=== PATIENT | male | born 1985 | race Caucasian/White ===

== ENCOUNTER 2024-06-10 07:14 | Emergency (ER) | payer OTHER, SELFPAY ==
[2024-06-10 07:19] VITALS: BP 131/79; PULSE 73; RESP 18; TEMP 36.8; O2SAT 93
--- NOTE | 2024-06-10 07:23 | W.ED.UPPEXIN ---
HPI - Extremity Injury (Upper) General: Chief Complaint: Wound/Laceration Stated Complaint: cut finger Time Seen by Provider: 06/10/24 07:15 History of Present Illness: 38-year-old male received a cut to the left index finger laterally closing a pocket knife. He is able to move the finger without difficulty. No other injury. Unsure of his last tetanus shot. Related Data Home Medications ?Medication ?Instructions ?Recorded ?Confirmed No Known Home Medications 06/10/24 06/10/24 Allergies Allergy/AdvReac Type Severity Reaction Status Date / Time No Known Allergies Allergy Unverified 11/21/22 10:55 Review of Systems Musc: Reports: other (Laceration left index finger) PFSH ED PFSH: Social History Smoking and tobacco/nicotine status: current every day tobacco/nicotine user cigarettes Alcohol intake: never Substance/Drug Use: never Adopted: No Caregiver/support person: No Lives independently: Yes Household members: none Housing: Manufactured/Mobile home Marital status: Single Number of children: 2 Highest education level completed: High School Graduate service: No Current occupational status: employed Physical Exam Extremity: OTHER: Full-thickness laceration medial aspect left index finger along the PIP. Full-thickness laceration 4 cm in length. No injury to tendon patient will flex and extend without difficulty Procedures Laceration Laceration 1: Site: hand Side (If applicable): left Size (cm): 4 Description: linear Pre-repair: wound explored and irrigated extensively Skin layer closed with: nylon Size (cm): 4-0 Number of sutures: 1 Technique: running Nerve Block Nerve Block 1: Time out performed: Yes Local Anesthetic: lidocaine 1% Amount of anesthesia used (mL): 5 Side: left Nerve Blocks: digital (Left index finger) Procedure Successful: Yes Patient Tolerated Procedure: well Complications: none Course Vital Signs: Vital signs: Vital Signs Temperature 98.2 F 06/10/24 07:19 Pulse Rate 97 06/10/24 09:35 Respiratory Rate 18 06/10/24 07:19 Blood Pressure 131/79 06/10/24 09:35 Pulse Oximetry 96 06/10/24 09:35 Oxygen Delivery Me thod Room Air 06/10/24 07:19 MDM - Extremity Injury (Upper) Medical Decision Making Will Blose with running suture 4-0 nylon wound care instructions given tetanus updated sutures to be removed in 10 days Medical Records I reviewed the patient's medical records. Lab Data I reviewed the patient's lab results. All radiology interpretation(s) finalized by discharge Discharge Plan Discharge Patient Disposition: Home Clinical Impression: Laceration Condition: Stable Prescriptions: No Action No Known Home Medications Discharge Orders: Discharge ED (Routine); Ordered 06/10/24 Ordered By: Gianluca Arnold Referrals: Marilee Pabon, [employer] [Primary Care Provider] - Discharge Diet: Usual diet Discharge Activity: Resume usual activity Patient Instructions: Finger Laceration (ED), Opioid Safety, Pain Management Activity Restrictions/Additional Instructions: Thank you for choosing [facility] for your healthcare needs today. It is very important that you follow up as instructed or that you return to the Emergency Department should you have concerns or if your condition changes or worsens in any way. Sutures should be removed in approximately 10 days Print Language: Estonian Coding Level of Care Code ED Cyber Security Systems Engineer for Katie Soto
[2024-06-10] MEDS: tetanus-dipt-pertussis 0.5 mL SDV IM (07:37)
[2024-06-10 09:35] VITALS: BP 131/79; PULSE 97; O2SAT 96
== END 2024-06-10 09:36 | disposition home or self-care (01) ==
PROVIDERS: Emergency Provider Family Medicine; PCP Nurse Practitioner
DX: S61.211A Laceration without foreign body of left index finger without damage to nail, initial encounter (principal); X58.XXXA Exposure to other specified factors, initial encounter
CPT/HCPCS: 12002; 90471; 90715; 99283